=== PATIENT | female | born 1960 | race Caucasian/White ===

== ENCOUNTER 2016-10-12 14:46 | Inpatient (IN) | payer MEDICARE, MEDICAID ==
[2016-10-12] MEDS ORDERED: Sodium Chloride 0.9% 1,000 ML IV STA (16:20)
--- NOTE | 2016-10-12 16:23 | ED PDOC ---
HPI:Nausea, Vomiting, Diarrhea Time Seen by Provider: 10/12/16 15:55 Chief Complaint (Nursing): GI Problem History Per: Patient (Nausea and vomiting since thgis AM. Denies abd pain or diarrhea. No fever. Denies chest pain. Missed dialysis today. Last dialysis Wednesday.) Onset/Duration Of Symptoms: Days (1) Current Symptoms Are (Timing): Still Present Severity: Moderate Pain Scale Rating Of: 0 Quality Of Discomfort: Unable To Describe. denies: Stabbing Associated Symptoms: Nausea, Vomiting. denies: Fever Exacerbating Factors: None Alleviating Factors: None Past Medical History Vital Signs: Last Vital Signs Temp 98.8 F 10/12/16 16:00 Pulse 98 H 10/12/16 16:00 Resp 20 10/12/16 16:00 BP 198/95 H 10/12/16 16:00 Pulse Ox 98 10/12/16 16:00 - Medical History PMH: Anemia, Diabetes, HTN, End Stage Renal Disease, Chronic Kidney Disease, Seizures, TIA Denies: Arthritis, CHF, COPD, HIV, Hypercholesterolemia, Hypothyroidism, Rheumatoid Arthritis - Surgical History Surgical History: Denies: Pacemaker - Family History Family History: States: Unknown Family Hx - Immunization History Hx Tetanus Toxoid Vaccination: No Hx Influenza Vaccination: Yes Hx Pneumococcal Vaccination: Yes - Home Medications Home Medications: Ambulatory Orders Medication Instructions Recorded Calcium Acetate [Phoslo] 667 mg PO TID 05/09/14 Cinacalcet [Sensipar] 30 mg PO DAILY 05/09/14 Ascorbic Acid/Vitamin B Comp 1 tab PO DAILY 11/20/14 [Nephro-Gerald] Carvedilol [Coreg Cr] 10 mg PO DAILY 06/08/16 Insulin Aspart, Recombinant See Protocol [facility] 06/08/16 [Novolog] Insulin Glargine, Recombina 15 units SC HS 06/08/16 [Lantus] Vitamin B Complex [Super B-50 1 tab PO DAILY 06/08/16 Complex] amLODIPine [Norvasc] 10 mg PO DAILY 06/08/16 cloNIDine [Catapres] 0.2 mg PO HS 06/08/16 metroNIDAZOLE [Flagyl] 500 mg PO BID 06/08/16 Bismuth Subsalicylate [Kaopectate] 525 mg PO ONCE #0 oral.susp 06/10/16 Aspirin [Low Dose Aspirin EC] 81 mg PO DAILY #100 tablet. 06/11/16 Atorvastatin [Lipitor] 10 mg PO DAILY #30 tab 06/11/16 - Allergies Allergies/Adverse Reactions: Allergies Allergy/AdvReac Type Severity Reaction Status Date / Time bleach Allergy Intermediate ITCHING Uncoded 06/08/16 06:51 Review of Systems ROS Statement: Except As Marked, All Systems Reviewed And Found Negative Cardiovascular: Negative for: Chest Pain Gastrointestinal: Positive for: Nausea, Vomiting. Negative for: Abdominal Pain , Diarrhea Physical Exam - Reviewed Nursing Documentation Reviewed: Yes Vital Signs Reviewed: Yes - Physical Exam Appears: Positive for: Non-toxic, No Acute Distress Head Exam: Positive for: ATRAUMATIC, NORMAL INSPECTION, NORMOCEPHALIC Skin: Positive for: Normal Color, Warm, DRY Eye Exam: Positive for: EOMI, Normal appearance, PERRL ENT: Positive for: Normal ENT Inspection Neck: Positive for: Normal, Painless ROM Cardiovascular/Chest: Positive for: Regular Rate, Rhythm Respiratory: Positive for: CNT, Normal Breath Sounds Gastrointestinal/Abdominal: Positive for: Normal Exam, Bowel Sounds, Soft Back: Positive for: Normal Inspection Extremity: Positive for: Normal ROM Neurologic/Psych: Positive for: Alert, Oriented - Laboratory Results Result Diagrams: 10/12/16 16:50 10/12/16 16:50 - ECG O2 Sat by Pulse Oximetry: 98 Disposition - Clinical Impression Clinical Impression: Type 2 diabetes mellitus, End stage renal disease on dialysis - Patient ED Disposition Is Patient to be Admitted: Yes - Disposition Disposition Time: 18:40 Condition: FAIR - Pt Status Changed To: Hospital Disposition Of: Observation - POA Present On Arrival: None
[2016-10-12 17:47] LABS: BASO # 0.1 K/uL (0.0-0.2); BASO % 2.9 % (0.0-2.0); EOS % 0.6 % (0.0-4.0); HEMATOCRIT 33.1 % (34.0-47.0); LYMPH # 0.7 K/uL (1.0-4.3); LYMPH % 19.2 % (20.0-40.0); MEAN CELL VOLUME 78.7 fl (81.0-99.0); MEAN CORPUSCULAR HEMOGLOBIN 24.9 pg (27.0-31.0); MEAN CORPUSCULAR HGB CONC 31.6 g/dL (33.0-37.0); MEAN PLATELET VOLUME 7.3 fl (7.2-11.7); MONO # 0.5 K/uL (0.0-0.8); MONO % 12.1 % (0.0-10.0); NEUT # 2.5 K/uL (1.8-7.0); NEUT % 65.2 % (50.0-75.0); NRBC % 0.1 % (0.0-0.0); RED CELL DISTRIBUTION WIDTH 17.7 % (11.5-14.5); WHITE BLOOD COUNT 3.9 K/uL (4.8-10.8)
[2016-10-12 18:23] LABS: ALB/GLOB RATIO 1.2 (1.0-2.1); CALCIUM 9.8 mg/dL (8.4-10.2); POTASSIUM 4.4 MMOL/L (3.6-5.0); TOTAL PROTEIN 8.6 G/DL (6.3-8.2)
[2016-10-12 18:40] LABS: TROPONIN I 0.018 ng/mL (0.00-0.120)
[2016-10-12] MEDS ORDERED: INSULIN ASPART RECOMBINANT 1 UNIT SC PRN (21:01)
[2016-10-12] MEDS ORDERED: INSULIN GLARGINE SC PRN (21:01)
[2016-10-12] MEDS: Insulin Lispro (humaLOG) 100 Units/ml Inj SC SCH (22:00)
[2016-10-12 23:29] VITALS: BMI 23.3
[2016-10-12] MEDS: Insulin Detemir 100 Units/ml Inj SC SCH (23:45)
--- NOTE | 2016-10-13 07:13 | CARD ---
APPROVED REPORT EKG Measurement Heart [id number] <Conclusion> Normal sinus rhythm Prolonged QT Abnormal ECG
[2016-10-13] MEDS: Insulin Lispro (humaLOG) 100 Units/ml Inj SC SCH ×3 (07:30→16:58)
[2016-10-13] MEDS ORDERED: Multivitamin Vitamin B Complex (Nephro-Vite) Tab PO SCH (09:00)
[2016-10-13] MEDS ORDERED: VITAMIN B COMPLEX PO SCH (09:00)
[2016-10-13] MEDS ORDERED: Apap-Butalbital-Caffeine 325-50-40mg Tab PO ONE (09:45)
--- NOTE | 2016-10-13 11:55 | RAD ---
HISTORY: nausea COMPARISON: 60 TECHNIQUE: Chest PA and lateral FINDINGS: LUNGS: No infiltrate. PLEURA: No significant pleural effusion identified. No pneumothorax apparent. CARDIOVASCULAR: Normal. OSSEOUS STRUCTURES: No significant abnormalities. VISUALIZED UPPER ABDOMEN: Normal. OTHER FINDINGS: None. IMPRESSION: No active disease
--- NOTE | 2016-10-13 12:43 | HP ---
HISTORY OF PRESENT ILLNESS: The patient is a 56-year-old female with history of end-stage renal fail ure, on hemodialysis, who was admitted via the Emergency Room because of projectile vomiting on the d ay of admission. She also missed her dialysis session on that day. She indicates that just recently she had been taken to [facility] because of severe headaches and was placed on trama dol and one is not if this caused her nausea and vomiting because she also had a sandwich before her symptoms started. PAST MEDICAL HISTORY: End-stage renal disease, diabetes mellitus, arterial occlusion of shunt site, transient ischemic attack, anemia, recurrent headaches, lacunar infarcts, cellulitis of extremities, anemia, hypertension, and peripheral neuropathy. FAMILY HISTORY: Noncontributory. SOCIAL HISTORY: She does not drink or smoke. REVIEW OF SYSTEMS: Essentially remarkable for unsteadiness of gait, pain in extremities and decrease d urine output. PHYSICAL EXAMINATION: GENERAL: The patient is alert and oriented. Symptoms of nausea and vomiting have completely resolve d, but has some headache this morning. VITAL SIGNS: Remarkable for blood pressure of 168/56 with a pulse of 67, respiratory rate 19. She i s afebrile. O2 sat 95% on room air. SKIN: Shows fair turgor. HEENT: Pupils equal, react to light and accommodation. Mouth shows fair hygiene. NECK: JVP flat. LUNGS: Clear. HEART: Regular. ABDOMEN: Soft, nontender. No organomegaly. EXTREMITIES: Show no edema or cyanosis. CENTRAL NERVOUS SYSTEM: Grossly intact. LABORATORY DATA: Remarkable for WBC of 3.9, hemoglobin 10.5, platelet count of 148,000. Sodium 137, potassium 4.4, BUN of 42, creatinine 8.5, serum glucose 279. Troponin 0.018. Chest x-ray official report pending, but shows no acute cardiopulmonary pathology. EKG: Normal sinus rhythm, prolonged QT. IMPRESSION: Intractable vomiting, probably secondary to gastritis, end-stage renal disease, diabetes mellitus, hypertension, peripheral vascular disease. PLAN: Nephrology evaluation for hemodialysis today. If the patient is clinically stable, she will b e discharged to follow up with her primary care physician. Pedro Ascencio MD cc: 62 TT: 10/13/2016 12:42:12 [email or web address]
--- NOTE | 2016-10-13 12:53 | CP.PCM.CON ---
History of Present Illness - History of Present Illness History of Present Illness: This patient who is 56 years old presented to the emergency room complaining of nausea vomiting not feeling good for which she was admitted and missed dialysis yesterday. Patient known with end stage renal disease on maintenance hemodialysis Wednesday. And she has history of diabetes mellitus for number of fears History of hypertension TIA in addition to that and decision renal disease Multiple admission in the past related to various medical problem as noted above. Review of Systems - Review of Systems Systems not reviewed;Unavailable: Respiratory Distress - EENT Nose/Mouth/Throat: As Per HPI - Cardiovascular Cardiovascular: As Per HPI. absent: Chest Pain, Dyspnea - Respiratory Respiratory: absent: Cough, Dyspnea - Gastrointestinal Gastrointestinal: As Per HPI, Bloating, Nausea - Genitourinary Genitourinary: Nocturia - Musculoskeletal Musculoskeletal: Muscle Weakness - Neurological Neurological: As Per HPI Past Patient History - Tetanus Immunizations Tetanus Immunization: Unknown - Past Medical History & Family History Past Medical History?: Yes - Past Social History Smoking Status: Never Smoked - CARDIAC Hx Congestive Heart Failure: No Hx Hypercholesterolemia: No Hx Hypertension: Yes Hx Pacemaker: No - PULMONARY Hx Chronic Obstructive Pulmonary Disease (COPD): No - NEUROLOGICAL Hx Transient Ischemic Attacks (TIA): Yes - HEENT Hx HEENT Problems: Yes - RENAL Hx Chronic Kidney Disease: Yes - ENDOCRINE/METABOLIC Hx Diabetes Mellitus Type 2: Yes Hx Hypothyroidism: No - HEMATOLOGICAL/ONCOLOGICAL Hx Anemia: Yes Hx Human Immunodeficiency Virus (HIV): No - INTEGUMENTARY Hx Dermatological Problems: No - MUSCULOSKELETAL/RHEUMATOLOGICAL Hx Falls: No - GASTROINTESTINAL Hx Gastrointestinal Disorders: No - GENITOURINARY/GYNECOLOGICAL Hx Genitourinary Disorders: No - PSYCHIATRIC Hx Substance Use: No - SURGICAL HISTORY Hx Surgeries: Yes Other/Comment: left toes amputation 2011. Rt. arm fistula 2003. kidney transplant in 2005. plastic surgery both eyelids aug 1995 - ANESTHESIA Hx Anesthesia: Yes Hx Anesthesia Reactions: No Hx Malignant Hyperthermia: No Meds Allergies/Adverse Reactions: Allergies Allergy/AdvReac Type Severity Reaction Status Date / Time bleach Allergy Intermediate ITCHING Uncoded 06/08/16 06:51 - Medications Medications: Current Medications Calcium Acetate (Phoslo) 667 mg PO DAILY [facility] Last Admin: 10/13/16 09:02 Dose: 667 mg Carvedilol (Coreg) 3.125 mg PO BID [facility] Last Admin: 10/13/16 09:01 Dose: 3.125 mg Cinacalcet (Sensipar) 30 mg PO DAILY [facility] Last Admin: 10/13/16 10:03 Dose: 30 mg Clonidine HCl (Catapres) 0.[address] [facility] Last Admin: 10/12/16 22:40 Dose: 0.5 mg Insulin Detemir (Levemir) [address] [facility] Last Admin: 10/12/16 23:45 Dose: Not Given Insulin Human Lispro (Humalog) 0 units SC [facility] PRN Reason: Protocol Last Admin: 10/13/16 07:30 Dose: 4 units Ondansetron HCl (Zofran Inj) 4 mg IVP Q6 PRN PRN Reason: Nausea/Vomiting Pantoprazole Sodium (Protonix Inj) 40 mg IVP DAILY [facility] Last Admin: 10/13/16 09:02 Dose: 40 mg Tramadol HCl (Ultram) 50 mg PO Q6 [facility] Last Admin: 10/13/16 04:00 Dose: Not Given Vitamin B Complex/Vit C/Folic Acid (Nephro-Gerald) 1 tab PO DAILY [facility] Last Admin: 10/13/16 09:02 Dose: 1 tab Physical Exam - Constitutional Appears: No Acute Distress - ENT Exam ENT Exam: Mucous Membranes Moist - Respiratory Exam Respiratory Exam: NORMAL BREATHING PATTERN. absent: Chest Wall Tenderness - GI/Abdominal Exam GI & Abdominal Exam: Normal Bowel Sounds - Extremities Exam Extremities exam: Negative for: calf tenderness - Back Exam Back exam: absent: CVA tenderness (L), CVA tenderness (R) - Neurological Exam Neurological exam: Alert Results - Vital Signs Recent Vital Signs: Last Vital Signs Temp 98.3 F 10/13/16 08:00 Pulse 71 10/13/16 09:01 Resp 20 10/13/16 08:00 BP 178/63 H 10/13/16 09:01 Pulse Ox 93 L 10/13/16 08:00 - Labs Result Diagrams: 10/12/16 16:50 10/12/16 16:50 Labs: Laboratory Results - last 24 hr 10/12/16 10/12/16 10/13/16 19:05 23:04 05:57 POC Glucose (mg/dL) 333 H 319 H 279 H Assessment & Plan (1) End stage renal disease on dialysis Assessment and Plan: Patient with end stage renal disease on maintenance hemodialysis admitted with nausea vomiting complaining of weakness. She was given some intravenous fluids she feels much better and she is scheduled for dialysis now. Her son was at the bedside consent was taken and patient requesting 3 hours of dialysis only. And minimal ultrafiltration perhaps less than 1000 mL as tolerated Status: Chronic Priority: Medium
[2016-10-13] MEDS ORDERED: Apap-Butalbital-Caffeine 325-50-40mg Tab PO PRN (16:44)
[2016-10-13 19:14] VITALS: BP 177/63; PULSE 74; RESP 20; TEMP 98.5; O2SAT 92
[2016-10-14] MEDS: Insulin Lispro (humaLOG) 100 Units/ml Inj SC SCH (00:04)
[2016-10-14] MEDS: Insulin Detemir 100 Units/ml Inj SC SCH (00:04)
== END 2016-10-13 20:45 | disposition left against medical advice (07) | DRG 391 ==
LOC: H.ER 14:46 → H.ERHOLD 18:38 → H.TEL 21:32 → OBSVTOIN 10-13 16:45
PROVIDERS: ADMIT Internal Medicine Pulmonary Disease; ATTEND Internal Medicine Pulmonary Disease
PROC: 5A1D00Z (ICD-10-PCS; principal; 2016-10-13)
DX: K29.60 Other gastritis without bleeding (principal); N18.6 End stage renal disease; I12.0 Hypertensive chronic kidney disease with stage 5 chronic kidney disease or end stage renal disease; E11.22 Type 2 diabetes mellitus with diabetic chronic kidney disease; Z94.0 Kidney transplant status; E11.51 Type 2 diabetes mellitus with diabetic peripheral angiopathy without gangrene; E11.42 Type 2 diabetes mellitus with diabetic polyneuropathy; D64.9 Anemia, unspecified; Z99.2 Dependence on renal dialysis; Z79.82 Long term (current) use of aspirin; Z86.73 Personal history of transient ischemic attack (TIA), and cerebral infarction without residual deficits